=== PATIENT | female | born 1990 | race African-American/Black ===

== ENCOUNTER 2020-11-04 16:28 | Emergency (ER) | payer SELFPAY ==
[~2020-11-04] VITALS: Ht 152.4 cm; Wt 102.1 kg
--- NOTE | 2020-11-04 17:05 | NUR ---
PT STILL REFUSING TO BE TRIAGE.
--- NOTE | 2020-11-04 17:26 | NUR ---
JAYSHREE CALLED [employer] [facility] 535 DISPATCHED A UNIT
--- NOTE | 2020-11-04 18:20 | NUR ---
BIB FOR AGITATION, [place]. REQUESTING PSYCH EVAL. PATIENT UNCOOPERATIVE, PARANOID, HYPERVERBAL. SCREAMING NON-STOP IN THE WAITING ROOM AND IN THE HALLWAY. PEED ON HERSELF. PATIENT REFUSED TO GO INTO A ROOM. PER 'S ASSISTANCE, PATIENT WAS BROUGHT TO BED 18. 4 POINT RESTRAINT IN PLACED, DUE TO PATIENT BECOMING AGITATED AND VERBALLY ABUSIVE TO STAFF.
[2020-11-04] MEDS ORDERED: LORAZEPAM INJ 2 MG/ML VIAL ONE (18:42)
[2020-11-04] MEDS ORDERED: OLANZAPINE 10 MG VIAL IM ONE ×2 (18:42→19:00)
[2020-11-04] MEDS ORDERED: LORAZEPAM INJ 2 MG/ML VIAL IM ONE (19:00)
--- NOTE | 2020-11-04 19:13 | NUR ---
PATIENT MEDICATED, WAITING FOR HER TO CALM DOWN BEFORE GETTING LABS AND URINE. AT BEDSIDE. ENDORSED TO [facility] FOR CONTINUITY OF CARE.
[2020-11-04 20:36] LABS: BASOPHILS % (AUTO) 0.3 % (0.0-2.0); EOSINOPHILS % (AUTO) 0.7 % (0.0-6.0); HEMATOCRIT 38 % (33-45); HEMOGLOBIN 12.6 g/dL (11.5-14.8); LYMPHOCYTES # (AUTO) 1.5 /CMM (0.8-4.8); LYMPHOCYTES % (AUTO) 12.5 % (20.0-44.0); MEAN CORPUSCULAR HGB CONC 33 g/dl (31.0-36.0); MEAN CORPUSCULAR VOLUME 89 fL (82-100); MONOCYTES # (AUTO) 0.6 /CMM (0.1-1.30); MONOCYTES % (AUTO) 4.6 % (2.0-12.0); NEUTROPHILS # (AUTO) 9.9 /CMM (1.8-8.9); NEUTROPHILS % (AUTO) 81.9 % (43.0-81.0); PLATELET COUNT (AUTO) 268 /CMM (150-450); RED BLOOD CELL COUNT(AUTO) 4.31 MIL/uL (4.0-5.2); WHITE BLOOD COUNT (AUTO) 12.1 K/uL (4.3-11.0)
--- NOTE | 2020-11-04 20:36 | NUR ---
LAB AT BEDSIDE FOR BLOOD DRAW
[2020-11-04 21:00] LABS: ALANINE AMINOTRANSFERASE 26 U/L (12-78); ALBUMIN 3.9 g/dL (3.4-5.0); ALCOHOL, BLOOD < 3 mg/dL (0-0); ALKALINE PHOSPHATASE 59 U/L (46-116); ASPARTATE AMINOTRANSFERASE 26 U/L (15-37); BILIRUBIN,DIRECT 0.1 mg/dL (0.0-0.2); BILIRUBIN,TOTAL 0.3 mg/dL (0.2-1.0); CARBON DIOXIDE 25 mmol/L (21-32); CHLORIDE 100 mmol/L (98-107); CREATININE 0.8 mg/dL (0.6-1.3); GLUCOSE 83 mg/dL (74-106); POTASSIUM 3.9 mmol/L (3.5-5.1); SODIUM SERUM 136 mmol/L (136-145); TOTAL PROTEIN, SERUM 8.6 g/dL (6.4-8.2); UREA NITROGEN, BLOOD 15 mg/dL (7-18)
[2020-11-04 21:01] LABS: ACETAMINOPHEN < 10 ug/ml (10-30)
[2020-11-04 21:37] LABS: BILIRUBIN,URINE Negative (NEGATIVE); COLOR,URINE YELLOW (YELLOW); LEUKOCYTE ESTERASE ,URINE Negative (NEGATIVE); NITRITE, URINE Negative (NEGATIVE); PH,URINE 5.5 (5.0-8.0); PROTEIN,URINE 30 mg/dl (NEGATIVE); UGLUCOSE Negative (NEGATIVE); UROBILINOGEN,URINE 0.2 EU/dL (0.2)
--- NOTE | 2020-11-04 21:42 | NUR ---
urine obtained and sent to lab
[2020-11-04 22:01] LABS: RBC,URINE 0-2 /HPF (0-2); WBC,URINE 0-2 /HPF (0-3)
[2020-11-04 22:02] LABS: BACTERIA,URINE Rare /HPF (None Seen); SQUAMOUS EPITHELIAL CELL,UR 0-2 /HPF (None Seen)
--- NOTE | 2020-11-04 22:21 | NUR ---
called crisis nurse chemical dependency. eta 60 min
--- NOTE | 2020-11-04 22:30 | NUR ---
pt refused covid swab
--- NOTE | 2020-11-04 23:00 | NUR ---
ophthalmology technician at bedside
[2020-11-05] MEDS ORDERED: LORAZEPAM 1 MG TABLET ONE (00:08)
[2020-11-05] MEDS ORDERED: LORAZEPAM 1 MG TABLET PO ONE (00:30)
--- NOTE | 2020-11-05 00:30 | NUR ---
pt refused 1mg Ativan
--- NOTE | 2020-11-05 01:15 | NUR ---
Pt refused to sign d/c paperwork. Patient discharged to home in stable condition. Written and verbal after care instructions given. Patient verbalizes understanding of instruction. Pt ambulatory with a steady gait.
[2020-11-05 01:16] VITALS: BP 145/60
== END 2020-11-05 01:13 | disposition home or self-care (01) ==
LOC: ER 16:41
DX: F22 Delusional disorders (principal); F29 Unspecified psychosis not due to a substance or known physiological condition; F31.9 Bipolar disorder, unspecified; F12.90 Cannabis use, unspecified, uncomplicated
CPT/HCPCS: 36415; 80048; 80076; 80299; 80307; 80320; 81001; 84703; 85025; 96372 ×2; 99284; J2060; J3490; G0480